=== PATIENT | male | born 1985 | race Caucasian/White ===

== ENCOUNTER 2022-07-08 21:56 | Emergency (ER) | payer OTHER ==
[~2022-07-08] VITALS: Ht 177.8 cm; Wt 72.6 kg
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
--- NOTE | 2022-07-08 23:00 | NUR ---
Pt is noted off the unit from CT. Pt care continue.
--- NOTE | 2022-07-08 23:15 | NUR ---
Pt is noted back from CT. Pt care continue.
[2022-07-08] MEDS ORDERED: IBUP-1953 PO (23:54)
[2022-07-09 00:19] VITALS: BP 128/75
--- NOTE | 2022-07-09 00:22 | NUR ---
Pt is noted off the unit as he is been discharge to home with all discharge instructions given with no S/S off distress or C/O pain.
== END 2022-07-09 00:22 | disposition home or self-care (01) ==
LOC: ER 21:58
DX: S01.01XA Laceration without foreign body of scalp, initial encounter (principal); S80.211A Abrasion, right knee, initial encounter; S40.811A Abrasion of right upper arm, initial encounter; R51.9 Headache, unspecified; Z60.2 Problems related to living alone; V19.9XXA Pedal cyclist (driver) (passenger) injured in unspecified traffic accident, initial encounter; Y93.89 Activity, other specified; Y92.89 Other specified places as the place of occurrence of the external cause; Y99.8 Other external cause status
CPT/HCPCS: 70450-TC; 70486-TC

== ENCOUNTER 2022-11-25 18:44 | Emergency (ER) | payer OTHER ==
[~2022-11-25] VITALS: Ht 177.8 cm; Wt 77.1 kg
[~2022-11-25 18:44] MED LIST: IBUP-1953 PO
[2022-11-25] MEDS ORDERED: KETOROLAC TROMETHAMINE INJ 30 MG/ML VIAL IM ONE (19:30)
[2022-11-25] MEDS ORDERED: KETOROLAC TROMETHAMINE INJ 30 MG/ML VIAL ONE (19:35)
[2022-11-25] MEDS ORDERED: KETO10TA2 PO (20:44)
[2022-11-25 20:50] VITALS: BP 141/87; TEMP 98.1; O2SAT 98
== END 2022-11-25 20:51 | disposition home or self-care (01) ==
LOC: ER 18:53
DX: S62.022A Displaced fracture of middle third of navicular [scaphoid] bone of left wrist, initial encounter for closed fracture (principal); S62.112A Displaced fracture of triquetrum [cuneiform] bone, left wrist, initial encounter for closed fracture; Z79.899 Other long term (current) drug therapy; Z60.2 Problems related to living alone; V98.8XXA Other specified transport accidents, initial encounter; Y93.89 Activity, other specified; Y92.89 Other specified places as the place of occurrence of the external cause; Y99.8 Other external cause status
CPT/HCPCS: 29125; 73080; 73090; 73110; 96372; 99284; J1885